=== PATIENT | female | born 1995 | race Caucasian/White ===

== ENCOUNTER 2022-02-18 21:56 | Emergency (ER) | payer SELFPAY ==
[~2022-02-18] VITALS: Ht 165.1 cm; Wt 85.0 kg
[2022-02-18 22:03] VITALS: BP 123/82
== END 2022-02-18 23:53 | disposition left against medical advice (07) ==
LOC: ER 21:56
DX: Z53.21 Procedure and treatment not carried out due to patient leaving prior to being seen by health care provider (principal)